=== PATIENT | female | born 1975 | race Caucasian/White ===

== ENCOUNTER → 2018-12-13 | Outpatient (CLI) | payer OTHER ==
--- NOTE | 2018-12-13 10:54 | KCIC ---
EXAM: Bilateral screening mammogram. HISTORY: 43-year-old female presents for screening mammography. TECHNIQUE: Full-field digital craniocaudal and mediolateral oblique views of both breasts are obtained for evaluation. Computer aided detection with [employer]D software version 9.3 was applied. COMPARISON: None. This is a baseline mammogram. BREAST PARENCHYMAL DENSITY: Level B - Scattered fibroglandular densities. FINDINGS: There are asymmetries within the posterior superior aspects of both breasts in the mediolateral oblique projection, likely due to summation artifact. No suspicious correlate is seen in the craniocaudal projection. There is no suspicious calcification. IMPRESSION: BI-RADS Category 0: Additional imaging needed. RECOMMENDATION: Further evaluation with full field true lateral views of both breasts is recommended to confirm summation artifact within the posterior superior breast demonstrated in the mediolateral projection, given the absence of prior studies to confirm stability. If your mammogram demonstrates that you have dense breast tissue, which could hide abnormalities, and if you have other risk factors for breast cancer that have been identified, you might benefit from supplemental screening tests that may be suggested by your ordering physician. Dense breast tissue, in and of itself, is a relatively common condition. This information is not provided to cause undue concern, but rather to raise your awareness and to promote discussion with your physician regarding the presence of other risk factors, in addition to dense breast tissue. A report of your mammography results will be sent to you and your physician. You should contact your physician if you have any questions or concerns regarding this report. Mammography is a sensitive method for finding small breast cancers, but it does not detect them all and is not a substitute for careful clinical examination. A negative mammogram does not negate a clinically suspicious finding and should not result in delay in biopsying a clinically suspicious abnormality. PQRS compliance statement - Patient information was entered into a reminder system with a target due date for the next mammogram. "Our facility is accredited by the [employer] Mammography [employer]." Electronically signed by: Saige Kuo MD (12/13/2018 10:51 AM) [id number]
== END | disposition home or self-care (01) ==
LOC: KCIC MAMMO 10:01
PROVIDERS: ATTEND Nurse Practitioner Family
DX: Z12.31 Encounter for screening mammogram for malignant neoplasm of breast (principal)
CPT/HCPCS: 77067

== ENCOUNTER → 2019-01-19 | Outpatient (CLI) | payer OTHER ==
--- NOTE | 2019-01-19 15:59 | KCIC ---
Bilateral diagnostic digital mammograms: Reason for examination: Parenchymal asymmetries on screening mammogram. Comparison is made to previous examination dated 12/13/2018. True lateral views were obtained bilaterally. With these additional views, the left breast shows some patchy fibroglandular tissue but no discrete nodules. The right breast however shows a small 1 cm nodular density approximately 2.5 cm inferior to the lymph node seen at the 10:00 C position. Further evaluation with ultrasound will follow. IMPRESSION: No discrete nodule in the left breast. Small 1 cm nodular density 2.5 cm inferior to the lymph node at the 10:00 C position. Ultrasound to follow. BI-RADS Category 0: Incomplete. Needs additional imaging evaluation. Bilateral breast ultrasound: Ultrasound examination was performed with attention to the upper outer quadrants and the axilla bilaterally. The right breast shows a nodule consistent with an intramammary lymph node at the 10:00 C position near the axilla 13 cm from the nipple measuring 12 x 6 mm in greatest dimension with echogenic hilum. There is vascular flow centrally. In the 10:00 position 11 cm from the nipple approximately 2 cm from the lymph node, there is a small hypoechoic nodule which is not as well-defined and appears to measure approximately 6 mm in greatest dimension. Further evaluation with ultrasound biopsy is recommended. There are no other cystic or solid nodules seen. No abnormal appearing lymph nodes are seen in the left axilla. The left breast shows no significant cystic or solid nodules or architectural distortions. There is some minimal ductal ectasia. The axillary lymph node shows no abnormal nodules. IMPRESSION: Small 6 mm nodule at the 10:00 position 11 cm from the nipple 2 cm inferior to the lymph node seen at the 10:00 C position of the right breast. Margins are not well defined and a small malignancy cannot be excluded. Recommend further evaluation with ultrasound guided biopsy. BI-RADS Category 4: Suspicious. These findings were discussed with the patient and the patient's nurse practitioner, Ashley Worley, was notified about these findings at 3:55 PM on 01/19/2019. This patient's information has been entered into a reminder system for the patient to be notified with the results of her examination and a target date for the next mammogram. "Our facility is accredited by the [employer] Mammography [employer]." Electronically signed by: Tamica Saavedra MD (01/19/2019 3:56 PM) [id number]
== END | disposition home or self-care (01) ==
LOC: KCIC MAMMO 10:24
PROVIDERS: ATTEND Nurse Practitioner Family
DX: N60.42 Mammary duct ectasia of left breast (principal); N63.11 Unspecified lump in the right breast, upper outer quadrant
CPT/HCPCS: 76641; 77066